=== PATIENT | female | born 1940 | race Caucasian/White ===

== ENCOUNTER → 2017-10-16 | Outpatient (CLI) | payer MEDICARE, OTHER ==
[2016-08-10 16:36] VITALS: BMI 41.7
[~2017-10-16] MED LIST: ACE325 PO; APIX5TAB PO; ATOR20TA22 PO; ATOR20TA65 PO; AZIT-1 PO; AZIT500T44 PO; BENICAR; CALC500T42 PO; CEFI400C PO; CEPH-13 PO; CHOL10005 PO; CHOL100059 PO; CYA1000 PO; CYAN250013; CYCL-277 PO; CYCL1DRO6 OP; DAR100 PO; DIA5 PO; DICL-195 PO; DICL100G39 TP; DILT240C4 PO; DOC100 PO; ELET20TA2 PO; ENO30I SC; ESCI20TA38 PO; EST625 PO; FLUT16SP19 NS; FURO20TA19 PO; HYDR-3140 PO; HYDR-4309 PO; HYDR1TAB PO; HYOS-8 PO; INUL2TAB7 PO; LEVA15HF IH; LIB PO; LOR5 PO; LOR5/325 PO; LORA10CA3 PO; LOSA-31 PO; MED25 PO; MEL7.5 PO; MELA10TA2 PO; MELO-149 PO; METH4TAB57 PO; METO100T20 PO; METO50TA19 PO; MOBIC; MULT-865 PO; OFLO10DR3 RIGHT EAR; OLME1TAB51 PO; ONDA4TAB PO; OXYGENHOME INH; PER PO; PHEN8TAB3 PO; PIRO10CA62 PO; PSYL0.5235 PO; VALS-25 PO; VALS1TAB2 PO; VERA180C7 PO; VERA360C6 PO; VERAPAMIL; ZOLP-350 PO
== END ==
LOC: LAB 09:31
DX: H11.823 Conjunctivochalasis, bilateral (principal)
CPT/HCPCS: 36415; 86703; 87340; G0472; 86803

== ENCOUNTER 2017-10-21 23:35 | Emergency (ER) | payer MEDICARE, OTHER ==
[2016-08-10 16:36] VITALS: Wt 90.7 kg
[~2017-10-21 23:35] MED LIST changes: -FURO-45 PO
[2017-10-21 23:36] VITALS: BP 159/70
[2017-10-21] MEDS ORDERED: AZITHROMYCIN 250 MG TAB PO ONE (23:45)
[2017-10-22] MEDS ORDERED: AZIT-1 PO (00:16)
--- NOTE | 2017-10-22 00:16 | ER Report ---
History and Physical Time Seen By MD: 23:38 Hx. 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 it is her right hand, patient having a lot of pain. HPI/ROS CHIEF COMPLAINT: Fall, right wrist injury, can't bite HISTORY OF PRESENT ILLNESS: 77-year-old female presents ambulatory to the ER complaining of right wrist and hand pain. Her cat who had been missing for 10 days. She was trying to catch her cat to bring it inside when she fell, losing her balance, landing on her right wrist and hand. She also spooked the cat who is seated bite her in the dorsal aspect of the hand. She states her cat is up- to-date on rabies vaccine. Patient describes 10/07 wrist pain aggravated by movement and palpation. Allergies: Coded Allergies: amoxicillin (Verified Allergy, Intermediate, HIVES, 10/22/17) clavulanic acid (Verified Allergy, Intermediate, HIVES, 10/22/17) tetracycline (Verified Allergy, Intermediate, HIVES, 10/22/17) oxycodone (Verified Allergy, Unknown, Hearing loss, 10/22/17) sulfamethoxazole (Unverified Adverse Reaction, Mild, vertigo, 10/22/17) trimethoprim (Unverified Adverse Reaction, Mild, vertigo, 10/22/17) Home Meds Active Scripts Azithromycin (ZITHROMAX) 250 Mg Tablet, 1 TAB PO QDAY for infection prevention, #4 TAB Prov:HELGA SANABRIA DO 10/22/17 Valsartan/Hydrochlorothiazide (VALSARTAN-HCTZ 80-12.5 MG TAB) 1 Each Tablet, 1 TAB PO QDAY for 90 Days, #90 TAB 4 Refills Prov:ROSELYN RODRIGUES MD 10/18/17 Diclofenac Sodium 1% Gel (VOLTAREN 1% GEL) 100 Gm Gel..gram., 1 SARAI TP PRN Y for PAIN, #1 TUBE 6 Refills Prov:ROSELYN RODRIGUES MD 08/31/17 Furosemide (LASIX) 20 Mg Tablet, 1 TAB PO DAILY Y for swelling, #90 TAB 3 Refills Prov:ROSELYN RODRIGUES MD 06/29/17 Eletriptan Hbr (RELPAX) 20 Mg Tablet, 20 MG PO PRN for 90 Days, #10 TAB 1 Refill Prov:ROSELYN RODRIGUES MD 04/20/17 Reported Medications Melatonin (MELATONIN) 10 Mg Tablet, 1 TAB PO PRN 05/17/17 Cholecalciferol (Vitamin D3) (VITAMIN D3) 1,000 Unit Capsule, 1 CAP PO DAILY, CAPSULE 05/17/17 Cyanocobalamin (Vitamin B-12) (VITAMIN B-12) 1,000 Mcg Tablet, 1 TAB PO DAILY 05/17/17 Multivitamin (DAILY MULTIPLE VITAMIN) Unknown Strength Tablet, 1 TAB PO DAILY 01/15/17 Fluticasone Prop 50 Mcg Ns (FLONASE 50 MCG NS) Unknown Strength [place].susp, 2 PUFF NS BID, BOT 01/15/17 Psyllium Husk (FIBER) Unknown Strength Capsule, PO, CAPSULE 01/15/17 Apixaban (ELIQUIS) 5 Mg Tablet, 1 TAB PO BID 08/06/16 Discontinued Reported Medications Oxygen (OXYGEN) Inha, 2 L INH QHS, L 04/18/17 Loratadine (CLARITIN) 10 Mg Capsule, 10 MG PO PRN, CAPSULE 12/27/16 Valsartan/Hydrochlorothiazide (VALSARTAN-HCTZ 80-12.5 MG TAB) 1 Each Tablet, 1 EACH PO QDAY 12/12/16 Reviewed Nurses Notes: Yes Old Medical Records Reviewed: Yes Hx Smoking: No Smoking Status: Never Smoker Hx Substance Use Disorder: No Hx Alcohol Use: Yes (3-5 TIMES WEEK) Constitutional Vital Sign - Last 24 Hours 10/21/17 23:36 Temp 98.7 Pulse 54 Resp 20 B/P (MAP) 159/70 Pulse Ox 95 O2 Delivery Room Air Physical Exam Vital signs stable, afebrile, pulse ox normal General appearance: Mild distress Respiratory: Chest is non tender, lungs are clear to auscultation. Cardiac: Regular rate and rhythm Extremities: Examination of the right upper extremity shows a right hand reveals extensive arthritis. There is some soft tissue swelling and a bite james on the dorsal aspect of the hand. Patient has decreased range of motion. All digits are neurovascularly intact. DIFFERENTIAL DIAGNOSIS: After history and physical exam differential diagnosis was considered for sprain, strain, fracture, dislocation, contusion, animal bite , puncture wound Medical Decision Making EKG/Imaging Imaging X-ray: Right hand, 3 views was obtained. I viewed the images myself on the PACS system. My interpretation of the images is: No fracture, no dislocation, advanced arthritis,. [The radiologist interpretation had no clinically significant variation from this interpretation]. ED Course/Re-evaluation ED Course Patient was admitted to an examination room. H&P was done. The pharyngeal diagnoses was considered. On medical examination. Patient has wrist and hand pain after a fall. Diagnostic x-rays were unremarkable. Patient has a cat bite to the dorsal aspect of her hand. She is allergic to penicillin with Zithromax. She's given 500 mg prophylactically here in the emergency department. Patient's tetanus status was verified is up-to-date. Patient was placed in a splint. She is advised to watch for signs of infection. She's given a prescription for Zithromax 250 mg capsules to finish out 4 days. Patient's advised to follow-up with primary care if unimproved in 3-5 days. Decision to Disposition Date: Oct 22, 2017 Decision to Disposition Time: 00:11 Depart Departure Latest Vital Signs Vital Signs Date Time Temp Pulse Resp B/P (MAP) Pulse Ox O2 Delivery O2 Flow Rate FiO2 10/21/17 23:36 98.7 54 20 159/70 95 Room Air Impression: Primary Impression: Right wrist sprain Additional Impressions: Cat bite of hand Degenerative arthritis of hand Condition: Improved Disposition: HOME OR SELF-CARE Referrals: ROSELYN RODRIGUES MD (PCP) New Scripts Azithromycin (ZITHROMAX) 250 Mg Tablet 1 TAB PO QDAY for infection prevention, #4 TAB Prov: HELGA SANABRIA DO 10/22/17 Patient Instructions: Animal Bite (ED), Wrist Sprain (ED) Additional Instructions: Follow-up with primary care if unimproved in 3-5 days Problem Qualifiers Primary Impression: Right wrist sprain Encounter type: initial encounter Qualified Codes: S63.501A - Unspecified sprain of right wrist, initial encounter Additional Impressions: Cat bite of hand Encounter type: initial encounter Laterality: right Qualified Codes: S61.451A - Open bite of right hand, initial encounter; W55.01XA - Bitten by cat , initial encounter Degenerative arthritis of hand Osteoarthritis type: primary Laterality: right Qualified Codes: M19.041 - Primary osteoarthritis, right hand HELGA SANABRIA DO Oct 22, 2017 00:16
--- NOTE | 2017-10-22 00:24 | RADIOLOGY IMAGING REPORT ---
FACILITY: [facility] - [place] PATIENT NAME: Miriam Gardiner : 1940 MR: [id number] V: [id number] EXAM DATE: ORDERING PHYSICIAN: HELGA SANABRIA TECHNOLOGIST: [place] [facility] [place] Patient: Miriam Gardiner : 1940 Visit/Account:[id number] Date of Sevice: 10/21/2017 INDICATION: fall injury cat bite EXAM DATE: 10/21/2017 11:42 PM COMPARISON: None. FINDINGS: 3 views right hand. Mineralization is diffusely low. No acute alignment abnormality or fracture. Mul tifocal severe arthrosis. Previous fusion of the interphalangeal joint of the thumb and the distal i nterphalangeal joint of the long finger. No apparent soft tissue emphysema or radiopaque foreign bod y. IMPRESSION: No acute osseous abnormality of the right hand. Nonacute findings as described. Report Dictated By: Juan Leigh MD at 10/22/2017 12:17 AM Report E-Signed By: Juan Leigh MD at 10/22/2017 12:19 AM WSN:[id number]
== END 2017-10-22 00:25 | disposition home or self-care (01) ==
LOC: ER 23:40
DX: S63.501A Unspecified sprain of right wrist, initial encounter (principal); S61.451A Open bite of right hand, initial encounter; M19.041 Primary osteoarthritis, right hand; W55.01XA Bitten by cat, initial encounter; W18.30XA Fall on same level, unspecified, initial encounter
CPT/HCPCS: 73130; 99283; L3908; Q0144

== ENCOUNTER → 2017-10-21 | Outpatient (CLI) | payer MEDICARE, OTHER ==
[2016-08-10 16:36] VITALS: BMI 41.7
[~2017-10-21] MED LIST changes: +FURO-45 PO
== END ==
LOC: AMB 23:28
PROVIDERS: ATTEND Nurse Practitioner
DX: M25.441 Effusion, right hand (principal); W01.198A Fall on same level from slipping, tripping and stumbling with subsequent striking against other object, initial encounter; Y92.019 Unspecified place in single-family (private) house as the place of occurrence of the external cause
CPT/HCPCS: A0425; A0429

== ENCOUNTER 2017-10-26 09:23 | Inpatient (IN) | payer MEDICARE, OTHER ==
[~2017-10-26] VITALS: Ht 156.2 cm; Wt 94.1 kg
[2017-10-26] MEDS ORDERED: DIPHTH/TETANUS/ACEL. PERTUSSIS IM ONLY ONE (09:50)
[2017-10-26] MEDS ORDERED: LEVOFLOXACIN/D5W 750 MG/150 ML 150 ML IVPB ONE (09:50)
[2017-10-26] MEDS ORDERED: CLINDAMYCIN(*) 600 MG/NS 50 ML 50 ML IVPB SCH (09:50)
[2017-10-26 10:37] LABS: PLATELET COUNT, AUTOMATED 266 K/uL (150-450)
--- NOTE | 2017-10-26 10:44 | ER Report ---
History and Physical Time Seen By MD: 09:50 Hx. of Stated Complaint: pt was bit by her cat 1 week ago, pt has been on azithromycin Qday since sunday. but states the redness and swelling has gotten worse. pts daughter outlined the redness, and the redness has spread so they were instructed by Dr. Gay to come in. HPI/ROS CHIEF COMPLAINT: Worsening skin infection HISTORY OF PRESENT ILLNESS: Patient is a 77-year-old female who was seen here on October 22 for a "wrist sprain" as well as a "cat bite". The electronic medical record from that visit was reviewed. Patient states that approximately on the evening of the . 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 She fell close to or on the cat who then subsequently bit her on the dorsum of the right hand. Patient states that the cat's immunizations including rabies are up to date. Patient's last tetanus shot was 7 years ago. Because of the Bite she was placed on antibiotics. She was placed on oral Zithromax secondary to multiple allergies including to penicillin, amoxicillin clavulanic acid, and Bactrim. X-rays at that visit were negative. She was seen twice by Dr. Gay who extended her antibiotic course. However the erythema has continued to spread. She reports increased pain with range of motion of the wrist as well as increased swelling. She denies any fevers or chills. Patient is right-hand dominant REVIEW OF SYSTEMS: Constitutional: No fever, no chills. Eyes: No discharge. ENT: No sore throat. Cardiovascular: No chest pain, no palpitations. Respiratory: No cough, no shortness of breath. Gastrointestinal: No abdominal pain, no vomiting. Genitourinary: No hematuria. Musculoskeletal: No back pain. Skin: Cellulitis Neurological: No headache. Allergies: Coded Allergies: amoxicillin (Verified Allergy, Intermediate, HIVES, 10/22/17) clavulanic acid (Verified Allergy, Intermediate, HIVES, 10/22/17) tetracycline (Verified Allergy, Intermediate, HIVES, 10/22/17) oxycodone (Verified Allergy, Unknown, Hearing loss, 10/22/17) sulfamethoxazole (Unverified Adverse Reaction, Mild, vertigo, 10/22/17) trimethoprim (Unverified Adverse Reaction, Mild, vertigo, 10/22/17) Home Meds Active Scripts Azithromycin (ZITHROMAX) 250 Mg Tablet, 1 TAB PO QDAY for infection prevention, #4 TAB Prov:HELGA SANABRIA DO 10/22/17 Valsartan/Hydrochlorothiazide (VALSARTAN-HCTZ 80-12.5 MG TAB) 1 Each Tablet, 1 TAB PO QDAY for 90 Days, #90 TAB 4 Refills Prov:ROSELYN RODRIGUES MD 10/18/17 Diclofenac Sodium 1% Gel (VOLTAREN 1% GEL) 100 Gm Gel..gram., 1 SARAI TP PRN Y for PAIN, #1 TUBE 6 Refills Prov:ROSELYN RODRIGUES MD 08/31/17 Furosemide (LASIX) 20 Mg Tablet, 1 TAB PO DAILY Y for swelling, #90 TAB 3 Refills Prov:ROSELYN RODRIGUES MD 06/29/17 Eletriptan Hbr (RELPAX) 20 Mg Tablet, 20 MG PO PRN for 90 Days, #10 TAB 1 Refill Prov:ROSELYN RODRIGUES MD 04/20/17 Reported Medications Melatonin (MELATONIN) 10 Mg Tablet, 1 TAB PO PRN 05/17/17 Cholecalciferol (Vitamin D3) (VITAMIN D3) 1,000 Unit Capsule, 1 CAP PO DAILY, CAPSULE 05/17/17 Cyanocobalamin (Vitamin B-12) (VITAMIN B-12) 1,000 Mcg Tablet, 1 TAB PO DAILY 05/17/17 Multivitamin (DAILY MULTIPLE VITAMIN) Unknown Strength Tablet, 1 TAB PO DAILY 01/15/17 Fluticasone Prop 50 Mcg Ns (FLONASE 50 MCG NS) Unknown Strength [place].susp, 2 PUFF NS BID, BOT 01/15/17 Psyllium Husk (FIBER) Unknown Strength Capsule, PO, CAPSULE 01/15/17 Apixaban (ELIQUIS) 5 Mg Tablet, 1 TAB PO BID 08/06/16 Discontinued Reported Medications Oxygen (OXYGEN) Inha, 2 L INH QHS, L 04/18/17 Loratadine (CLARITIN) 10 Mg Capsule, 10 MG PO PRN, CAPSULE 12/27/16 Past Medical/Surgical History Past medical history for atrial fibrillation status post ablation with permanent pacemaker. Hyperlipidemia, hypertension. Osteoarthritis and back pain , tonsillectomy, uterine cancer/polyp excised 2008 Hx Smoking: No Smoking Status: Never Smoker Hx Substance Use Disorder: No Hx Alcohol Use: Yes (3-5 TIMES WEEK) Constitutional Vital Sign - Last 24 Hours 10/26/17 09:27 Temp 97.5 Pulse 80 Resp 18 B/P (MAP) 137/64 Pulse Ox 96 O2 Delivery Room Air Intake and Output 10/26/17 10/26/17 10/27/17 15:00 23:00 07:00 Intake Total 50 ml Balance 50 ml Physical Exam General Appearance: The patient is alert, has no immediate need for airway protection and no signs of toxicity. Eyes: Pupils equal and round no pallor or injection. ENT, Mouth: Mucous membranes are moist. Respiratory: There are no retractions, lungs are clear to auscultation. Cardiovascular: Regular rate and rhythm. Gastrointestinal: Abdomen is soft and non tender, no masses, bowel sounds normal. Neurological: Awake alert Skin: Patient has erythema to the dorsum of the right hand and forearm also along the volar aspect of the forearm starting at the wrist and spreading proximally passed a pen marker line that was drawn 24 hours ago. Medical Decision Making Data Points Result Diagram: 10/26/17 1025 10/26/17 1025 Laboratory Hematology Test 10/26/17 10:25 Red Blood Count 4.49 M/uL (4.17-5.56) Mean Corpuscular Volume 91.9 fL (80.0-96.0) Mean Corpuscular Hemoglobin 31.9 pg (26.0-33.0) Mean Corpuscular Hemoglobin Concent 34.8 g/dL (32.0-36.0) Red Cell Distribution Width 14.7 % (11.5-14.5) Mean Platelet Volume 8.0 fL (7.2-11.1) Neutrophils (%) (Auto) 86.3 % (39.4-72.5) Lymphocytes (%) (Auto) 7.5 % (17.6-49.6) Monocytes (%) (Auto) 5.2 % (4.1-12.4) Eosinophils (%) (Auto) 0.7 % (0.4-6.7) Basophils (%) (Auto) 0.3 % (0.3-1.4) Nucleated RBC Relative Count (auto) 0.0 /100WBC Neutrophils # (Auto) 9.5 K/uL (2.0-7.4) Lymphocytes # (Auto) 0.8 K/uL (1.3-3.6) Monocytes # (Auto) 0.6 K/uL (0.3-1.0) Eosinophils # (Auto) 0.1 K/uL (0.0-0.5) Basophils # (Auto) 0.0 K/uL (0.0-0.1) Nucleated RBC Absolute Count (auto) 0.00 K/uL Peripheral Blood Smear Yes Y/N Sodium Level 133 mmol/L (137-145) Potassium Level 3.6 mmol/L (3.5-5.0) Chloride Level 98 mmol/L (98-107) Carbon Dioxide Level 23 mmol/L (22-31) Blood Urea Nitrogen 49 mg/dl (7-18) Creatinine 1.40 mg/dl (0.52-1.04) Glomerular Filtration Rate Calc 36.6 Random Glucose 113 mg/dl (75-110) Calcium Level 9.4 mg/dl (8.4-10.2) Chemistry Test 10/26/17 10:25 White Blood Count 11.0 k/uL (4.5-11.0) Red Blood Count 4.49 M/uL (4.17-5.56) Hemoglobin 14.3 g/dL (12.0-16.0) Hematocrit 41.2 % (34.0-47.0) Mean Corpuscular Volume 91.9 fL (80.0-96.0) Mean Corpuscular Hemoglobin 31.9 pg (26.0-33.0) Mean Corpuscular Hemoglobin Concent 34.8 g/dL (32.0-36.0) Red Cell Distribution Width 14.7 % (11.5-14.5) Platelet Count 266 K/uL (150-450) Mean Platelet Volume 8.0 fL (7.2-11.1) Neutrophils (%) (Auto) 86.3 % (39.4-72.5) Lymphocytes (%) (Auto) 7.5 % (17.6-49.6) Monocytes (%) (Auto) 5.2 % (4.1-12.4) Eosinophils (%) (Auto) 0.7 % (0.4-6.7) Basophils (%) (Auto) 0.3 % (0.3-1.4) Nucleated RBC Relative Count (auto) 0.0 /100WBC Neutrophils # (Auto) 9.5 K/uL (2.0-7.4) Lymphocytes # (Auto) 0.8 K/uL (1.3-3.6) Monocytes # (Auto) 0.6 K/uL (0.3-1.0) Eosinophils # (Auto) 0.1 K/uL (0.0-0.5) Basophils # (Auto) 0.0 K/uL (0.0-0.1) Nucleated RBC Absolute Count (auto) 0.00 K/uL Peripheral Blood Smear Yes Y/N Glomerular Filtration Rate Calc 36.6 Calcium Level 9.4 mg/dl (8.4-10.2) EKG/Imaging Imaging FACILITY: PATIENT NAME: Miriam Gardiner : 1940 MR: [id number] V: [id number] EXAM DATE: ORDERING PHYSICIAN: JULIAN LEVINE TECHNOLOGIST: Location: [facility] - [place], [place] Patient: Miriam Gardiner : 1940 Visit/Account:[id number] Date of Sevice: 10/26/2017 Examination: CT right hand with IV contrast HISTORY: Cat bite. Evaluate for soft tissue abscess. TECHNIQUE: Transaxial computed tomography images are obtained of the right hand following the administration of 85 mL of Isovue 370. Multiplanar reformatted images are created in the coronal and sagittal planes. One of the following dose optimization techniques was utilized in the performance of this exam: Automated exposure control; adjustment of the mA and/ or kV according to the patient's size; or use of an iterative reconstruction technique. Specific details can be referenced in the facility's radiology CT exam operational policy. COMPARISON: Images of the hand dated 10/21/2017 are reviewed. FINDINGS: There is abnormal skin thickening about the wrist most pronounced dorsally with underlying subcutaneous edema. There is a large joint effusion seen at the wrist. There are chronic changes at the wrist consistent with an underlying inflammatory arthropathy. There is relative uniform joint space narrowing of the joint space to the capitate and the lunate and the joint space between the hamate and triquetrum. There is widening of the scapholunate joint space. There has been prior resection of the trapezium and a portion of the trapezoid. There may be a single daphne of gas within the joint space at the site of prior trapezium resection. At this point, given the overlying cellulitic changes, septic arthropathy at the wrist must be considered in the differential. Joint aspiration could be performed with fluid analysis for further workup. In addition to the intra-articular fluid, there is felt to be fluid associated with the second extensor compartment at the level of Carmen's tubercle. More distally, there is fluid overlying the third and fourth metacarpal shafts which appears to parallel the extensor tendons and may be within the tendon sheaths. A few flecks of gas are seen within this fluid overlying the mid shaft of the third metacarpal. Findings are consistent with a soft tissue infection and a developing abscess either deep to the tendons or associated with the tendon sheaths. This area of fluid overlying the third and fourth metacarpals measures up to 2.9 x 0.8 x 3.4 cm in size. No gross bone destruction. With respect to the fingers, extensive changes of osteoarthritis are seen. Suspected erosive changes involve several the joint spaces likely due to erosive osteoarthritis. There has been prior wire arthrodesis performed at the DIP joint of the long finger. The edema within the soft tissues extends along the dorsum of the hand towards the bases of the fingers. IMPRESSION: 1. Abnormal appearance of the right wrist with a chronic underlying inflammatory arthropathy. There is a large joint effusion present with a daphne of gas suspected near the base of the thumb at the site of prior trapezium resection. This is seen in conjunction with fluid along the dorsum of the hand overlying the third and fourth metacarpals which also contains a few flecks of gas. Overall, concern is for a developing soft tissue abscess along the dorsum of the hand either within the extensor tendon sheath or deep to the extensor tendons. This likely communicates with the wrist with a concomitant septic arthropathy. Further evaluation with an orthopedic/hand specialist is recommended. Joint aspiration and/or fluid aspiration should be performed for further workup. 2. Nonspecific fluid involving the second extensor compartment. Again this may be related to an underlying inflammatory arthritis but an infectious tenosynovitis must be considered in the differential. 3. 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 Results were iscussed with JULIAN LEVINE at 10/26/2017 1:00 PM. Report Dictated By: Alber Alvarez at 10/26/2017 12:45 PM Report E-Signed By: Alber Alvarez at 10/26/2017 1:09 PM WSN:[id number] FACILITY: PATIENT NAME: Miriam Gardiner : 1940 MR: [id number] V: [id number] EXAM DATE: ORDERING PHYSICIAN: JULIAN LEVINE TECHNOLOGIST: Location: [facility] - [place], [place] Patient: Miriam Gardiner : 1940 Visit/Account:[id number] Date of Sevice: 10/26/2017 Examination: Computed tomography right forearm with contrast HISTORY: Cat bite. Evaluate for abscess. TECHNIQUE: Transaxial computed tomography images are obtained of the right forearm following the administration of 85 mL of Isovue-370. Multiplanar reformatted images were created in the coronal and sagittal planes. One of the following dose optimization techniques was utilized in the performance of this exam: Automated exposure control; adjustment of the mA and/ or kV according to the patient's size; or use of an iterative reconstruction technique. Specific details can be referenced in the facility's radiology CT exam operational policy. COMPARISON: None. FINDINGS: There is abnormal skin thickening and subcutaneous edema identified within the ulnar margin of the right forearm. This begins just distal to the elbow joint and extends distally to the wrist. There is circumferential edema and skin thickening about the wrist most pronounced dorsally. With respect to the forearm itself, no superficial or deep intramuscular fluid collection is identified. No discrete bone destruction involves the radius or the ulna. No discrete soft tissue gas. Scattered calcifications are seen within the soft tissues which may be related to vascular phleboliths. The wrist is abnormal. See today's hand examination for further detail. There is a radiocarpal joint effusion. IMPRESSION: 1. CT findings compatible with cellulitis along the ulnar margin of the right forearm extending from just distal to the elbow to the wrist. No evidence of forearm abscess within the superficial or deep soft tissues. 2. Abnormal appearance of the wrist. See today's hand CT report for further detail. Report Dictated By: Alber Alvarez at 10/26/2017 12:32 PM Report E-Signed By: Alber Alvarez at 10/26/2017 12:45 PM WSN:[id number] Course/Re-evaluation ED Course 10/26/2017 11:48:20 am patient with worsening cellulitis on oral Zithromax. The cellulitis is secondary to a cat bite. Patient's last tetanus was 7 years ago we will update that today. I believe the patient would benefit from a course of IV antibiotics including clindamycin and a fluoroquinolone. I discussed the case with the admitting hospitalist he request a CT of the forearm and hand at this time to make sure there is no fluid collection. Patient made aware and agrees to procedure. Disposition pending study. 10/26/2017 1:36:23 pm I spoke with Dr. Misael Rock was on-call for orthopedics. History physical exam lab findings were reviewed. Dr. Rock personally reviewed the CT scan himself. He was not impressed with the fluid collection to the wrist and felt that a tap of the wrist would reveal very little information as he felt it would be a "dry". He is willing to see or have one of his partners see the patient in consultation but feels the patient should be admitted for IV antibiotics. As the case with Dr. Adonis Moss. He was made aware I did contact orthopedics and also with her willingness to consult on the case if required. He agrees to IV antibiotics at this time. I will add a CRP to the patient's lab work. The patient was made aware of the admission and agrees with disposition at this time. Decision to Disposition Date: Oct 26, 2017 Decision to Disposition Time: 13:37 Depart Departure Latest Vital Signs Vital Signs Date Time Temp Pulse Resp B/P (MAP) Pulse Ox O2 Delivery O2 Flow Rate FiO2 10/26/17 09:27 97.5 80 18 137/64 96 Room Air Impression: Primary Impression: Cat bite of hand Additional Impression: Cellulitis Condition: Improved Disposition: Admitted from ER (to Dr Moss) Referrals: ROSELYN RODRIGUES MD (PCP) Problem Qualifiers Primary Impression: Cat bite of hand Encounter type: subsequent encounter Laterality: right Qualified Codes: S61.451D - Open bite of right hand, subsequent encounter; W55.01XD - Bitten by cat, subsequent encounter Additional Impression: Cellulitis Site of cellulitis: extremity Site of cellulitis of extremity: upper extremity Laterality: right Qualified Codes: L03.113 - Cellulitis of right upper limb JULIAN LEVINE MD Oct 26, 2017 10:44
[2017-10-26] MEDS ORDERED: IOPAMIDOL 76% 100 ML INFUS BTL 100 ML ONE (11:27)
[2017-10-26] MEDS ORDERED: NS(*) 0.9% 1000 ML BAG 1,000 ML IV ONE (12:15)
--- NOTE | 2017-10-26 12:49 | RADIOLOGY IMAGING REPORT ---
FACILITY: [facility] PATIENT NAME: Miriam Gardiner : 1940 MR: [id number] V: [id number] EXAM DATE: ORDERING PHYSICIAN: JULIAN LEVINE TECHNOLOGIST: Location: [facility] Patient: Miriam Gardiner : 1940 Visit/Account:[id number] Date of Sevice: 10/26/2017 Examination: Computed tomography right forearm with contrast HISTORY: Cat bite. Evaluate for abscess. TECHNIQUE: Transaxial computed tomography images are obtained of the right forearm following the admi nistration of 85 mL of Isovue-370. Multiplanar reformatted images were created in the coronal and sag ittal planes. One of the following dose optimization techniques was utilized in the performance of this exam: Autom ated exposure control; adjustment of the mA and/or kV according to the patient's size; or use of an i terative reconstruction technique. Specific details can be referenced in the facility's radiology C T exam operational policy. COMPARISON: None. FINDINGS: There is abnormal skin thickening and subcutaneous edema identified within the ulnar margin of the ri ght forearm. This begins just distal to the elbow joint and extends distally to the wrist. There is c ircumferential edema and skin thickening about the wrist most pronounced dorsally. With respect to th e forearm itself, no superficial or deep intramuscular fluid collection is identified. No discrete remington ne destruction involves the radius or the ulna. No discrete soft tissue gas. Scattered calcifications are seen within the soft tissues which may be related to vascular phleboliths. The wrist is abnormal. See today's hand examination for further detail. There is a radiocarpal joint effusion. IMPRESSION: 1. CT findings compatible with cellulitis along the ulnar margin of the right forearm extending from just distal to the elbow to the wrist. No evidence of forearm abscess within the superficial or deep soft tissues. 2. Abnormal appearance of the wrist. See today's hand CT report for further detail. Report Dictated By: Alber Alvarez at 10/26/2017 12:32 PM Report E-Signed By: Alber Alvarez at 10/26/2017 12:45 PM WSN:[id number]
--- NOTE | 2017-10-26 13:13 | RADIOLOGY IMAGING REPORT ---
FACILITY: [facility] [place] PATIENT NAME: Miriam Gardiner : 1940 MR: [id number] V: [id number] EXAM DATE: ORDERING PHYSICIAN: JULIAN LEVINE TECHNOLOGIST: Location: [facility] [place] Patient: Miriam Gardiner : 1940 Visit/Account:[id number] Date of Sevice: 10/26/2017 Examination: CT right hand with IV contrast HISTORY: Cat bite. Evaluate for soft tissue abscess. TECHNIQUE: Transaxial computed tomography images are obtained of the right hand following the adminis tration of 85 mL of Isovue 370. Multiplanar reformatted images are created in the coronal and sagitta l planes. One of the following dose optimization techniques was utilized in the performance of this exam: Autom ated exposure control; adjustment of the mA and/or kV according to the patient's size; or use of an i terative reconstruction technique. Specific details can be referenced in the facility's radiology C T exam operational policy. COMPARISON: Images of the hand dated 10/21/2017 are reviewed. FINDINGS: There is abnormal skin thickening about the wrist most pronounced dorsally with underlying subcutaneo us edema. There is a large joint effusion seen at the wrist. There are chronic changes at the wrist c onsistent with an underlying inflammatory arthropathy. There is relative uniform joint space narrowin g of the joint space to the capitate and the lunate and the joint space between the hamate and trique trum. There is widening of the scapholunate joint space. There has been prior resection of the trapez ium and a portion of the trapezoid. There may be a single daphne of gas within the joint space at the site of prior trapezium resection. At this point, given the overlying cellulitic changes, septic arth ropathy at the wrist must be considered in the differential. Joint aspiration could be performed with fluid analysis for further workup. In addition to the intra-articular fluid, there is felt to be flu id associated with the second extensor compartment at the level of Carmen's tubercle. More distally, there is fluid overlying the third and fourth metacarpal shafts which appears to parallel the extenso r tendons and may be within the tendon sheaths. A few flecks of gas are seen within this fluid overly ing the mid shaft of the third metacarpal. Findings are consistent with a soft tissue infection and a developing abscess either deep to the tendons or associated with the tendon sheaths. This area of fl uid overlying the third and fourth metacarpals measures up to 2.9 x 0.8 x 3.4 cm in size. No gross bone destruction. With respect to the fingers, extensive changes of osteoarthritis are seen. Suspected erosive changes involve several the joint spaces likely due to erosive osteoarthritis. There has been prior wire arth rodesis performed at the DIP joint of the long finger. The edema within the soft tissues extends along the dorsum of the hand towards the bases of the finge rs. IMPRESSION: 1. Abnormal appearance of the right wrist with a chronic underlying inflammatory arthropathy. There i s a large joint effusion present with a daphne of gas suspected near the base of the thumb at the site of prior trapezium resection. This is seen in conjunction with fluid along the dorsum of the hand ov erlying the third and fourth metacarpals which also contains a few flecks of gas. Overall, concern is for a developing soft tissue abscess along the dorsum of the hand either within the extensor tendon sheath or deep to the extensor tendons. This likely communicates with the wrist with a concomitant se ptic arthropathy. Further evaluation with an orthopedic/hand specialist is recommended. Joint aspirat ion and/or fluid aspiration should be performed for further workup. 2. Nonspecific fluid involving the second extensor compartment. Again this may be related to an under lying inflammatory arthritis but an infectious tenosynovitis must be considered in the differential. 3. 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 Results were iscussed with JULIAN LEVINE at 10/26/2017 1:00 PM. Report Dictated By: Alber Alvarez at 10/26/2017 12:45 PM Report E-Signed By: Alber Alvarez at 10/26/2017 1:09 PM WSN:[id number]
[2017-10-26 14:19] VITALS: BP 147/68
[2017-10-26] MEDS ORDERED: FURO-45 PO (14:29)
[2017-10-26] MEDS ORDERED: NS(*) 0.9% 1000 ML BAG 1,000 ML IV PRN ×2 (15:04→16:30)
[2017-10-26] MEDS ORDERED: APAP/HYDROCODONE 325/5 TAB PO PRN (15:05)
--- NOTE | 2017-10-26 15:39 | History & Physical ---
History of Present Illness Chief Complaint Hand pain and swelling History of Present Illness 77yo female with PMHx significant for a-fib s/p ablation with pacemaker placement, osteoarthritis. She reports a cat bite to her right hand approximately 4 days ago. It was her cat, who has had all immunizations. She developed redness, swelling, and pain fairly quickly following the bite. She was seen in the ER and started on azithromycin (due to several antibiotic allergies) and Epsom salt soaks. She has been seen in the outpatient orthopedic clinic with Dr. Wood as well. She states the pain, redness, and swelling all worsened over the following days. She denies any over fevers or chills. She did have the margins of the involvement marked in the clinic and it has spread beyond these jarrell. She was evaluated in the ER again today and recommended for admission. History Problems: (1) Fibroid, uterine Status: Resolved (2) Spinal cord cysts Status: Resolved (3) Lumbar compression fracture Status: Chronic (4) DJD (degenerative joint disease), multiple sites Status: Chronic (5) Acute systolic heart failure Status: Resolved (6) Hyperlipidemia Status: Chronic (7) Atrial fibrillation Status: Chronic (8) HTN (hypertension) Status: Chronic (9) History of total knee arthroplasty Status: Resolved (10) Hx of breast reduction, elective Status: Resolved (11) History of shoulder surgery Status: Resolved (12) Hx of tonsillectomy Status: Resolved (13) Hx of thumb surgery Status: Resolved Home Meds Active Scripts Azithromycin (ZITHROMAX) 250 Mg Tablet, 1 TAB PO QDAY for infection prevention, #4 TAB Prov:HELGA SANABRIA DO 10/22/17 Valsartan/Hydrochlorothiazide (VALSARTAN-HCTZ 80-12.5 MG TAB) 1 Each Tablet, 1 TAB PO QDAY for 90 Days, #90 TAB 4 Refills Prov:ROSELYN RODRIGUES MD 10/18/17 Diclofenac Sodium 1% Gel (VOLTAREN 1% GEL) 100 Gm Gel..gram., 1 SARAI TP PRN Y for PAIN, #1 TUBE 6 Refills Prov:ROSELYN RODRIGUES MD 08/31/17 Eletriptan Hbr (RELPAX) 20 Mg Tablet, 20 MG PO PRN for 90 Days, #10 TAB 1 Refill Prov:ROSELYN RODRIGUES MD 04/20/17 Reported Medications Furosemide (FUROSEMIDE) 20 Mg Tablet, 1 TAB PO QDAY, TAB 10/26/17 Melatonin (MELATONIN) 10 Mg Tablet, 1 TAB PO PRN 05/17/17 Cholecalciferol (Vitamin D3) (VITAMIN D3) 1,000 Unit Capsule, 1 CAP PO DAILY, CAPSULE 05/17/17 Cyanocobalamin (Vitamin B-12) (VITAMIN B-12) 1,000 Mcg Tablet, 1 TAB PO DAILY 05/17/17 Multivitamin (DAILY MULTIPLE VITAMIN) Unknown Strength Tablet, 1 TAB PO DAILY 01/15/17 Psyllium Husk (FIBER) Unknown Strength Capsule, 1 CAP PO QDAY, CAPSULE 01/15/17 Apixaban (ELIQUIS) 5 Mg Tablet, 1 TAB PO BID 08/06/16 Discontinued Reported Medications Fluticasone Prop 50 Mcg Ns (FLONASE 50 MCG NS) Unknown Strength Likely.susp, 2 PUFF NS BID, BOT 01/15/17 Oxygen (OXYGEN) Inha, 2 L INH QHS, L 04/18/17 Loratadine (CLARITIN) 10 Mg Capsule, 10 MG PO PRN, CAPSULE 12/27/16 Discontinued Scripts Furosemide (LASIX) 20 Mg Tablet, 1 TAB PO DAILY Y for swelling, #90 TAB 3 Refills Prov:ROSELYN RODRIGUES MD 06/29/17 Allergies: Coded Allergies: amoxicillin (Verified Allergy, Intermediate, HIVES, 10/22/17) clavulanic acid (Verified Allergy, Intermediate, HIVES, 10/22/17) tetracycline (Verified Allergy, Intermediate, HIVES, 10/22/17) oxycodone (Verified Allergy, Unknown, Hearing loss, 10/22/17) sulfamethoxazole (Unverified Adverse Reaction, Mild, vertigo, 10/22/17) trimethoprim (Unverified Adverse Reaction, Mild, vertigo, 10/22/17) Patient History: FH: skin cancer FATHER, , Age:90 FH: stroke FATHER, , Age:90 Hx Smoking: No Smoking Status: Never Smoker Caffeine Intake: Coffee Caffeine/Cups Per Day: 2 Hx Alcohol Use: Yes (3-5 TIMES WEEK) Hx Substance Use Disorder: No Social Drug Use: Never Review of Systems Constitutional: No Fever, No Chills Neurological: No Syncope, No Confusion, No Weakness Eyes: No Vision Change, No Loss of Vision ENT: No Hearing Loss Cardiovascular: No Chest Pain, No Palpitations Respiratory: No Shortness of Breath, No Cough Gastrointestinal: No Nausea, No Vomiting, No Hematemesis, No Hematochezia, No Melena Genitourinary: No Dysuria, No Hematuria Musculoskeletal: Pain Exam Vital Signs Vital Signs Date Time Temp Pulse Resp B/P (MAP) Pulse Ox O2 Delivery O2 Flow Rate FiO2 10/26/17 14:19 96.4 65 16 147/68 (94) 64 Room Air General Appearance: Alert, Awake Neuro: No Gross deficits Eyes: PERRLA ENT: Oropharynx Clear Neck: No Masses Cardiovascular: Regular Rate and Rhythm, No JVD Respiratory: Clear to Auscultation Chest: No Tenderness GI: Abd Soft and Non-Tender : No CVA Tenderness Extremities: Other (significant limitation of ROM through right wrist with moderate pain with testing/apparent moderate joint effusion right wrist with overlying erythema and callor/erythema extends proximally along right forearm/ two small punctures over dorsum of right hand) Integumentary: Generalized Fragile Skin Psych: Alert & Oriented X3 Medical Decision Making Data Points Result Diagram: 10/26/17 1025 10/26/17 1025 Item Value Date Time C-Reactive Protein 9.0 mg/dl H 10/26/17 1025 Assessment and Plan Problems: (1) Cellulitis Status: Acute Assessment & Plan: It appears she has rather significant cellulitis (at a minimum) and possibly septic arthritis of her wrist. She has several allergies, but we should be able to use Levaquin and Flagyl for coverage of possible organisms. Will need to have orthopedics see her as well - will discuss with Dr. Wood. (2) Cat bite of hand Status: Acute Assessment & Plan: She will be on the Levaquin and Flagyl as noted above. The cat is currently with her roofing machine operator. (3) Atrial fibrillation Status: Chronic Assessment & Plan: She has had previous ablation with pacemaker placement. She has been on chronic Eliquis therapy. We will hold for now as she may need surgical intervention in near future. (4) HTN (hypertension) Status: Chronic Assessment & Plan: Her BPs are currently low normal. Will hold the valsartan/ HCTZ and monitor. She has modest elevation of her creatinine, which could be related to the diuretic and NSAID use. Watch labs. Copies to: ROSELYN RODRIGUES MD Venous Thromboembolism Antithrombotics Is Pt On Any Antithrombotics?: Yes (will be held for possible surgical intervention) Exam Sepsis Risk: No Definite Risk Problem Qualifiers (1) Cellulitis: Site of cellulitis: extremity Site of cellulitis of extremity: upper extremity Laterality: right Qualified Codes: L03.113 - Cellulitis of right upper limb (2) Cat bite of hand: Encounter type: subsequent encounter Laterality: right Qualified Codes: S61.451D - Open bite of right hand, subsequent encounter; W55.01XD - Bitten by cat, subsequent encounter ROM MCDONOUGH MD Oct 26, 2017 15:40
[2017-10-26] MEDS ORDERED: NS(*) 0.9% 1000 ML BAG 1,000 ML ONE (16:31)
[2017-10-26] MEDS: metroNIDAZOLE* 500MG/100ML BAG 100 ML IVPB SCH (16:41)
[2017-10-26] MEDS ORDERED: metroNIDAZOLE* 500MG/100ML BAG 100 ML IVPB SCH (17:00)
[2017-10-26] MEDS: APAP/HYDROCODONE 325/5 TAB PO PRN (17:11)
[2017-10-26 19:34] VITALS: BP 98/54
[2017-10-27] MEDS: APAP/HYDROCODONE 325/5 TAB PO PRN ×4 (00:22→18:57)
[2017-10-27] MEDS: metroNIDAZOLE* 500MG/100ML BAG 100 ML IVPB SCH ×3 (00:22→17:10)
[2017-10-27 00:24] VITALS: BP 127/55
[2017-10-27 02:51] VITALS: BP 130/67
[2017-10-27 06:44] LABS: PLATELET COUNT, AUTOMATED 222 K/uL (150-450)
[2017-10-27 06:51] LABS: INR 1.48
[2017-10-27 08:47] VITALS: BP 113/64
[2017-10-27] MEDS ORDERED: MAGNESIUM HYDROXIDE* 30ML UDCP PO PRN (09:50)
[2017-10-27] MEDS ORDERED: BISACODYL 10 MG SUPP PR PRN (09:50)
[2017-10-27] MEDS ORDERED: LEVOFLOXACIN/D5W*500 MG/100 ML 100 ML IVPB SCH (10:00)
[2017-10-27] MEDS: DOCUSATE SODIUM 100 MG CAP PO SCH ×2 (10:29→20:34)
[2017-10-27] MEDS: POLYETHYLENE GLYCOL 17 GM PKT PO SCH (10:30)
[2017-10-27] MEDS: LEVOFLOXACIN/D5W*500 MG/100 ML 100 ML IVPB SCH (10:30)
[2017-10-27 11:05] VITALS: Ht 156.2 cm; Wt 94.1 kg
[2017-10-27] MEDS ORDERED: MELATONIN 3 MG TAB PO PRN (11:05)
[2017-10-27] MEDS: PSYLLIUM 28% 1 PACKET PO SCH (11:05)
--- NOTE | 2017-10-27 11:10 | Hospitalist Progress Note ---
Subjective Progress Notes Subjective Overall, feeling better. Hands/fingers less swollen. Physical Exam Vital Signs Date Time Temp Pulse Resp B/P (MAP) Pulse Ox O2 Delivery O2 Flow Rate FiO2 10/27/17 08:47 98.3 62 14 113/64 (80) 96 Room Air Intake and Output 10/28/17 07:00 Intake Total 1005 ml Balance 1005 ml IV Total 1005 ml # Voids 1 General Appearance: Alert, Awake, No Acute Distress Extremities: Other (R hand is swollen and wrist extending up arm is also swollen with erythema. New boundaries drawn in.) Result Diagram: 10/27/1751210/27/17512 Assessment and Plan Problems: (1) Cellulitis Status: Acute Assessment & Plan: She presented with swelling/erythema of wrist/hand secondary to a cat bite 4 days prior to admission. By CT, she possibly might have a septic arthritis of her wrist. She has several allergies, so she is getting IV Levaquin and Flagyl for coverage of possible organisms. Orthopedics is following. Erythema and swelling have improved some. Afebrile. BP/P stable. (2) Cat bite of hand Status: Acute Assessment & Plan: She will be on the Levaquin and Flagyl as noted above. The cat is currently with her broach setter. (3) Atrial fibrillation Status: Chronic Assessment & Plan: She has had previous ablation with pacemaker placement. She has been on chronic Eliquis therapy. We was held but will restart tonight. (4) HTN (hypertension) Status: Chronic Assessment & Plan: Will restart Lasix and Valsartan with parameters. Continue to hold HCTZ. Exam Sepsis Risk: No Definite Risk Problem Qualifiers (1) Cellulitis: Site of cellulitis: extremity Site of cellulitis of extremity: upper extremity Laterality: right Qualified Codes: L03.113 - Cellulitis of right upper limb (2) Cat bite of hand: Encounter type: subsequent encounter Laterality: right Qualified Codes: S61.451D - Open bite of right hand, subsequent encounter; W55.01XD - Bitten by cat, subsequent encounter OSCAR HERNANDEZ MD Oct 27, 2017 11:10
[2017-10-27 12:01] VITALS: BP 125/64
[2017-10-27 17:13] VITALS: BP 110/55
[2017-10-27] MEDS ORDERED: APIXABAN 2.5 MG TABLET PO SCH (21:00)
[2017-10-28] MEDS: APAP/HYDROCODONE 325/5 TAB PO PRN ×4 (00:59→21:23)
[2017-10-28] MEDS: metroNIDAZOLE* 500MG/100ML BAG 100 ML IVPB SCH ×3 (00:59→16:39)
[2017-10-28 04:46] VITALS: BP 146/77
[2017-10-28] MEDS ORDERED: NORMOSOL R SOLN(*) 1000 ML BAG 1,000 ML IV ONE (04:46)
[2017-10-28 06:02] LABS: PLATELET COUNT, AUTOMATED 271 K/uL (150-450)
[2017-10-28 07:50] VITALS: BP 131/70
[2017-10-28] MEDS: FUROSEMIDE 20 MG TAB PO SCH (08:57)
[2017-10-28] MEDS: VALSARTAN 80 MG TAB PO SCH (08:57)
[2017-10-28] MEDS: DOCUSATE SODIUM 100 MG CAP PO SCH ×2 (08:57→20:16)
[2017-10-28] MEDS: POLYETHYLENE GLYCOL 17 GM PKT PO SCH (08:58)
[2017-10-28] MEDS: PSYLLIUM 28% 1 PACKET PO SCH (08:58)
[2017-10-28] MEDS: LEVOFLOXACIN/D5W*500 MG/100 ML 100 ML IVPB SCH (10:13)
--- NOTE | 2017-10-28 10:17 | Hospitalist Progress Note ---
Subjective Progress Notes Subjective Feeling better. Physical Exam Vital Signs Date Time Temp Pulse Resp B/P (MAP) Pulse Ox O2 Delivery O2 Flow Rate FiO2 10/28/17 07:50 98.7 72 18 131/70 (90) 97 Room Air Intake and Output 10/29/17 07:00 Intake Total 240 ml Balance 240 ml Intake Oral 240 ml General Appearance: Alert, Awake, No Acute Distress Cardiovascular: Regular Rate and Rhythm Respiratory: Clear to Auscultation GI: Soft and Non-Tender Extremities: Warm, Perfused, Other (R hand with swelling of hand and distal forearm. Redness has receded from Dr. Delgado's markings. Slightly warm to the touch. ) Integumentary: Other (See above.) Psych: Appropriate Mood & Affect Result Diagram: 10/28/1752310/28/17523 Assessment and Plan Problems: (1) Cellulitis Status: Acute Assessment & Plan: She presented with swelling/erythema of wrist/hand secondary to a cat bite 4 days prior to admission. CT showed a possible septic arthritis of her wrist. CRP elevated. She has several allergies, so she is getting IV Levaquin and Flagyl for coverage of possible organisms. Orthopedics is following and feels she is improving so have deferred any surgery. Erythema and swelling have improved today. She remains afebrile. BP/P stable. (2) Cat bite of hand Status: Acute Assessment & Plan: She will be on the Levaquin and Flagyl as noted above. The cat is currently with her sales inspector. (3) Atrial fibrillation Status: Chronic Assessment & Plan: She has had previous ablation with pacemaker placement. She has been on chronic Eliquis therapy and this was restarted. (4) HTN (hypertension) Status: Chronic Assessment & Plan: Will restart Lasix and Valsartan with parameters. Continue to hold HCTZ. Time Spent on Plan of Care: < 30 min Exam Sepsis Risk: No Definite Risk Problem Qualifiers (1) Cellulitis: Site of cellulitis: extremity Site of cellulitis of extremity: upper extremity Laterality: right Qualified Codes: L03.113 - Cellulitis of right upper limb (2) Cat bite of hand: Encounter type: subsequent encounter Laterality: right Qualified Codes: S61.451D - Open bite of right hand, subsequent encounter; W55.01XD - Bitten by cat, subsequent encounter DUKE MCDONOUGH MD Oct 28, 2017 10:17
[2017-10-28 11:48] VITALS: BP 127/62
[2017-10-28 16:38] VITALS: BP_SYST 127; BP_SYST 134; BP_DIAS 62; BP_DIAS 75
[2017-10-28 18:46] VITALS: BP 123/67
[2017-10-28] MEDS: APIXABAN 2.5 MG TABLET PO SCH (20:16)
[2017-10-29] MEDS: metroNIDAZOLE* 500MG/100ML BAG 100 ML IVPB SCH ×3 (01:15→16:44)
[2017-10-29] MEDS: APAP/HYDROCODONE 325/5 TAB PO PRN ×3 (03:23→18:20)
[2017-10-29 06:22] LABS: PLATELET COUNT, AUTOMATED 304 K/uL (150-450)
[2017-10-29 08:49] VITALS: BP 141/73
[2017-10-29] MEDS: FUROSEMIDE 20 MG TAB PO SCH (09:25)
[2017-10-29] MEDS: APIXABAN 2.5 MG TABLET PO SCH (09:25)
[2017-10-29] MEDS: VALSARTAN 80 MG TAB PO SCH (09:25)
[2017-10-29] MEDS: DOCUSATE SODIUM 100 MG CAP PO SCH ×2 (09:25→20:43)
[2017-10-29] MEDS: PSYLLIUM 28% 1 PACKET PO SCH (09:35)
[2017-10-29] MEDS: POLYETHYLENE GLYCOL 17 GM PKT PO SCH (09:35)
--- NOTE | 2017-10-29 09:58 | Hospitalist Progress Note ---
Subjective Progress Notes Subjective This patient was admitted for cellulitis of the wrist and hand after a cat bite. She had no acute events overnight. Patient Complains of: Cardiovascular: No: Chest Pain Respiratory: No: Shortness of Breath Physical Exam Vital Signs Date Time Temp Pulse Resp B/P (MAP) Pulse Ox O2 Delivery O2 Flow Rate FiO2 10/29/17 08:49 98.5 91 141/73 (95) 95 Room Air 10/28/17 16:38 18 Intake and Output 10/30/17 07:00 Intake Total 180 ml Balance 180 ml Intake Oral 180 ml Integumentary: Other (Right wrist with reduced erythema, but increased swelling into the hand.) Result Diagram: 10/29/17 0549 10/29/17 0549 Item Value Date Time Blood Culture - Preliminary Resulted 10/26/17 1028 Blood Peripheral Draw NO GROWTH AFTER 2 DAYS, REINCUBATED Blood Culture - Preliminary Resulted 10/26/17 1025 Blood Peripheral Draw NO GROWTH AFTER 2 DAYS, REINCUBATED Assessment and Plan Problems: (1) Cellulitis Status: Acute Assessment & Plan: She presented with swelling/erythema of wrist/hand secondary to a cat bite 4 days prior to admission. A CT scan showed a possible septic arthritis of her wrist. She was evaluated by Dr. Wood. There are no plans for operative intervention at this time. She is on treatment with levofloxacin and metronidazole. Her CRP remains elevated today. We may consider repeating her CT scan if she doesn't improve. (2) Cat bite of hand Status: Acute Assessment & Plan: As above. (3) Atrial fibrillation Status: Chronic Assessment & Plan: She has had previous ablation with pacemaker placement. She is on chronic treatment with apixaban, which has been placed on hold. (4) HTN (hypertension) Status: Chronic Assessment & Plan: She is on chronic treatment with valsartan, Lasix, and hydrochlorothiazide. The hydrochlorothiazide remains on hold. Exam Sepsis Risk: No Definite Risk Problem Qualifiers (1) Cellulitis: Site of cellulitis: extremity Site of cellulitis of extremity: upper extremity Laterality: right Qualified Codes: L03.113 - Cellulitis of right upper limb (2) Cat bite of hand: Encounter type: subsequent encounter Laterality: right Qualified Codes: S61.451D - Open bite of right hand, subsequent encounter; W55.01XD - Bitten by cat, subsequent encounter OLVIN,ARIADNA DO Oct 29, 2017 09:58
[2017-10-29] MEDS: LEVOFLOXACIN/D5W*500 MG/100 ML 100 ML IVPB SCH (11:00)
--- NOTE | 2017-10-29 11:51 | Antimicrobial Stewardship ---
Antimicrobial Time Out Antimicrobial Stewardship MD Service: Hospitalist Indications: Cellulitis (Potential Abscess, Cat Bite) Antimicrobial Used 10/26/17: Levofloxacin 500mg IV Q24h + Metronidazole 500mg IV Q8h Start Date: Oct 26, 2017 Culture Results: Yes (10/26/17: Blood Cx x 2 = NGTD, cat bites- most common pathogen pasturella multocida) Eligible for PO Conversion Eligable for PO Conversion: No (10/29/17: Concern for extending infection, possible abscess - CRP 19, pain) Reviewed with Provider Reviewed w/ Provider on Rounds: Yes Date Reviewed w/ Provider: Oct 29, 2017 Comments Comments 77 yo F with a history of a cat bite on 10/22/17 seen in the outpatient orthopedic clinic by Dr. Wood and in the ED as well. Presented on 10/26/17 with worsening symptoms despite azithromycin. Tmax- Afebrile BP 130-140s/60-70s HR 60-70s, max today 90s CRP: 9 ->23.3 -> 19.9 WBC: 11->7.8 -> 10.8 Neut: 9.5 ->6.8-> 5.2-> 7.8 Scr: 0.7 INR: 1.48 (on apixiban) ALL: amoxicillin, clavulanic acid, oxycodone, sulfamethoxazole, trimethoprim, tetracycline 10/26/17: Blood Cx x 2 = NGTD 10/26/17: CT of hand and forearm (R): Showed concern for developing abscess along the dorsum of the hand, likely aseptic arthritis Plan: Continue treatment with levofloxacin 500mg IV Q24h + metronidazole 500mg IV q8h, today is day 4 of IV antibiotics, continue with intravenous treatment until signs of clinical improvement. Consider re-scanning to assess for abscess formation within the next 48 hours. Total duration of treatment, likely 10 - 14 days. When appropriate to transition to oral antibiotics, consider oral levofloxacin 500mg po daily and metronidazole 500mg po TID to complete full treatment. Will continue to monitor and adjust antibiotics as appropriate. Lynda Baca, PharmD, BCOP LYNDA BACA Oct 29, 2017 11:51
[2017-10-29 14:56] VITALS: BP 147/85
[2017-10-29 19:36] VITALS: BP 125/74
[2017-10-30] MEDS: APAP/HYDROCODONE 325/5 TAB PO PRN ×4 (00:21→18:26)
[2017-10-30] MEDS: metroNIDAZOLE* 500MG/100ML BAG 100 ML IVPB SCH ×3 (00:21→16:51)
[2017-10-30 03:24] VITALS: BP 161/84
[2017-10-30] MEDS: FUROSEMIDE 20 MG TAB PO SCH (09:00)
[2017-10-30] MEDS: VALSARTAN 80 MG TAB PO SCH (09:00)
[2017-10-30 09:25] VITALS: BP 125/74
[2017-10-30] MEDS: DOCUSATE SODIUM 100 MG CAP PO SCH ×2 (09:26→20:35)
[2017-10-30] MEDS: PSYLLIUM 28% 1 PACKET PO SCH (09:27)
[2017-10-30] MEDS: POLYETHYLENE GLYCOL 17 GM PKT PO SCH (09:27)
[2017-10-30] MEDS: APIXABAN 2.5 MG TABLET PO SCH ×2 (09:30→20:33)
--- NOTE | 2017-10-30 10:11 | Hospitalist Progress Note ---
Subjective Progress Notes Subjective She reports decrease in swelling and redness, but still a very painful wrist. Physical Exam Vital Signs Date Time Temp Pulse Resp B/P (MAP) Pulse Ox O2 Delivery O2 Flow Rate FiO2 10/30/17 09:25 98.2 65 20 125/74 (91) 94 Room Air Intake and Output 10/31/17 07:00 Intake Total 0 ml Balance 0 ml Intake Oral 0 ml General Appearance: Alert, Awake, No Acute Distress Musculoskeletal: Other (Hand/forearm is less swollen and erythematous. Still with swelling over the wrist and fingers. Erythema over dorsum of hand. Very tender with movement of wrist or palpation) Result Diagram: 10/29/17 0549 10/29/17 0549 Assessment and Plan Problems: (1) Cellulitis Status: Acute Assessment & Plan: She presented with swelling/erythema of wrist/hand secondary to a cat bite 4 days prior to admission. A CT scan showed a possible septic arthritis of her wrist. She was evaluated by Dr. Wood. There are no plans for operative intervention at this time. She is on treatment with levofloxacin and metronidazole. Her CRP remains elevated today. We may consider repeating her CT scan if she doesn't improve. (2) Cat bite of hand Status: Acute Assessment & Plan: As above. (3) Atrial fibrillation Status: Chronic Assessment & Plan: She has had previous ablation with pacemaker placement. She is on chronic treatment with apixaban, which has been placed on hold. (4) HTN (hypertension) Status: Chronic Assessment & Plan: She is on chronic treatment with valsartan, Lasix, and hydrochlorothiazide. The hydrochlorothiazide remains on hold. Exam Sepsis Risk: No Definite Risk Problem Qualifiers (1) Cellulitis: Site of cellulitis: extremity Site of cellulitis of extremity: upper extremity Laterality: right Qualified Codes: L03.113 - Cellulitis of right upper limb (2) Cat bite of hand: Encounter type: subsequent encounter Laterality: right Qualified Codes: S61.451D - Open bite of right hand, subsequent encounter; W55.01XD - Bitten by cat, subsequent encounter OSCAR HERNANDEZ MD Oct 30, 2017 10:11
[2017-10-30] MEDS: LEVOFLOXACIN/D5W*500 MG/100 ML 100 ML IVPB SCH (10:45)
[2017-10-30 12:04] VITALS: BP 139/94
[2017-10-30 15:59] VITALS: BP 164/82
[2017-10-30 18:48] VITALS: BP 136/70
[2017-10-30 22:22] VITALS: BP 156/94
[2017-10-31] MEDS: metroNIDAZOLE* 500MG/100ML BAG 100 ML IVPB SCH ×3 (00:34→16:18)
[2017-10-31] MEDS: APAP/HYDROCODONE 325/5 TAB PO PRN ×4 (00:34→18:40)
[2017-10-31 02:32] VITALS: BP 162/95
[2017-10-31 05:39] LABS: PLATELET COUNT, AUTOMATED 369 K/uL (150-450)
[2017-10-31] MEDS ORDERED: IOPAMIDOL 76% 75 ML INFUS BTL 75 ML ONE (08:26)
[2017-10-31] MEDS: POLYETHYLENE GLYCOL 17 GM PKT PO SCH (09:00)
[2017-10-31 09:04] VITALS: BP 167/86
[2017-10-31] MEDS: PSYLLIUM 28% 1 PACKET PO SCH (09:09)
[2017-10-31] MEDS: APIXABAN 2.5 MG TABLET PO SCH (09:10)
[2017-10-31] MEDS: DOCUSATE SODIUM 100 MG CAP PO SCH ×2 (09:10→20:53)
[2017-10-31] MEDS: FUROSEMIDE 20 MG TAB PO SCH (09:10)
[2017-10-31] MEDS: VALSARTAN 80 MG TAB PO SCH (09:10)
[2017-10-31] MEDS: LEVOFLOXACIN/D5W*500 MG/100 ML 100 ML IVPB SCH (10:40)
[2017-10-31 10:54] VITALS: BP 157/81
--- NOTE | 2017-10-31 11:30 | Hospitalist Progress Note ---
Subjective Progress Notes Subjective She is having continued pain and limitation of ROM in her wrist. No fever. Physical Exam Vital Signs Date Time Temp Pulse Resp B/P (MAP) Pulse Ox O2 Delivery O2 Flow Rate FiO2 10/31/17 10:54 98.6 60 20 157/81 (106) 96 Room Air Intake and Output 11/01/17 07:00 Intake Total 1144 ml Balance 1144 ml Intake Oral 1040 ml IV Total 104 ml # Bowel Movements 1 General Appearance: Alert, Awake Extremities: Other (she has significant edema and erythema over wrist with tenderness to palpation and significant limitation of ROM/erythema over forearm has decreased significantly) Result Diagram: 10/31/17 0513 10/31/17512 Assessment and Plan Problems: (1) Cellulitis Status: Acute Assessment & Plan: She presented with swelling/erythema of wrist/hand secondary to a cat bite 4 days prior to admission. A CT scan showed cellulitis and concern for a possible septic arthritis of her wrist. She was evaluated by Dr. Wood. She is on treatment with IV levofloxacin and metronidazole. Her CRP is improving. She is afebrile. We will repeat her CT scan, however, as she has persistent changes involving her wrist. (2) Cat bite of hand Status: Acute Assessment & Plan: As above. (3) Atrial fibrillation Status: Chronic Assessment & Plan: She has had previous ablation with pacemaker placement. She is on chronic treatment with apixaban. (4) HTN (hypertension) Status: Chronic Assessment & Plan: She is on chronic treatment with valsartan, Lasix, and hydrochlorothiazide. The hydrochlorothiazide remains on hold. Exam Sepsis Risk: No Definite Risk Problem Qualifiers (1) Cellulitis: Site of cellulitis: extremity Site of cellulitis of extremity: upper extremity Laterality: right Qualified Codes: L03.113 - Cellulitis of right upper limb (2) Cat bite of hand: Encounter type: subsequent encounter Laterality: right Qualified Codes: S61.451D - Open bite of right hand, subsequent encounter; W55.01XD - Bitten by cat, subsequent encounter ROM MCDONOUGH MD Oct 31, 2017 11:30
[2017-10-31 15:09] VITALS: BP 139/63
--- NOTE | 2017-10-31 15:25 | RADIOLOGY IMAGING REPORT ---
FACILITY: [facility] [place] PATIENT NAME: Miriam Gardiner : 1940 MR: [id number] V: [id number] EXAM DATE: ORDERING PHYSICIAN: OSCAR HERNANDEZ TECHNOLOGIST: Location: [facility] Patient: Miriam Gardiner : 1940 Visit/Account:[id number] Date of Sevice: 10/31/2017 INDICATION: cat bite and concern for abscess. DATE: 10/31/2017 2:57 PM. TECHNIQUE: WRIST RIGHT W CONTRAST. Contrast-enhanced axial CT imaging was performed through the right wrist with sagittal and coronal reformats. 75 cc Isovue-370 administered. One of the following dose optimization techniques was utilized in the performance of this exam: Automated exposure control; adj ustment of the mA and/or kV according to the patient's size; or use of an iterative reconstruction t echnique. Specific details can be referenced in the facility's radiology CT exam operational policy. COMPARISON: Forearm and hand radiographs of October 26, 2017 FINDINGS: There is fluid along the extensor tendon sheaths involving the second through fifth digits at the lev el of the metacarpals and within the extensor tendon sheath of the forearm at the level of the carpus . There is an effusion at the distal radioulnar joint with thickening of the peripheral synovium. The re are gas bubbles within the joint space at the base of the from between the first metacarpal and th e scaphoid. The trapezium appears to be absent and may have been resected. There are multiple lobulat ions with probable peripheral enhancement on the lateral side of the hand involving the musculature b etween the first and second webspace. This is demonstrated on series 3 image 19. No fracture or dislocation. Mild widening of the scapholunate interval is likely chronic but suggests an old scapholunate ligamentous injury. There are multifocal degenerative findings. IMPRESSION: 1. Tenosynovitis involving the first through fifth extensor tendons as above and effusion at the dist al radioulnar joint with thickened synovium. Given the history, findings suggest infectious tenosynov itis with extension to the carpus involving at least the distal radioulnar joint and the first metaca rpal-scaphoid interval. 2. There is also gas between the scaphoid and the base of the first metacarpal (the trapezium appears to have been at some point resected). A gas-forming organism may be present. 3. Probable small abscesses within the musculature between the first and second digits. Report Dictated By: Tiffani Brown MD at 10/31/2017 2:57 PM Report E-Signed By: Tiffani Brown MD at 10/31/2017 3:22 PM [id number]
[2017-10-31 18:50] VITALS: BP 130/60
--- NOTE | 2017-10-31 20:47 | RADIOLOGY IMAGING REPORT ---
FACILITY: [facility] - [place] PATIENT NAME: Miriam Gardiner : 1940 MR: [id number] V: [id number] EXAM DATE: ORDERING PHYSICIAN: ROM MCDONOUGH TECHNOLOGIST: Location: Patient: Miriam Gardiner : 1940 Visit/Account:[id number] Date of Sevice: 10/31/2017 PORTABLE CHEST: Indication: Preoperative evaluation. Technique: A single frontal film was obtained. Comparison: 08/09/2016 Skeletal and soft tissue structures: There are chronic degenerative changes in the shoulders. No acut e skeletal deformity is identified. Heart and mediastinum: Within normal limits. Lung novoa: Well-expanded and clear. No focal opacities. Pleural spaces: Unremarkable. Impression: No acute process or significant change. Report Dictated By: Carlitos Monet MD at 10/31/2017 8:41 PM Report E-Signed By: Carlitos Monet MD at 10/31/2017 8:43 PM WSN:[id number]
[2017-10-31 23:02] VITALS: BP 158/79
[2017-11-01] VITALS (9 sets, daily range): BP systolic 151–180; BP diastolic 70–91
[2017-11-01] MEDS: APAP/HYDROCODONE 325/5 TAB PO PRN ×4 (00:43→22:20)
[2017-11-01] MEDS: metroNIDAZOLE* 500MG/100ML BAG 100 ML IVPB SCH ×3 (00:43→16:47)
[2017-11-01 05:50] LABS: PLATELET COUNT, AUTOMATED 399 K/uL (150-450)
[2017-11-01] MEDS ORDERED: FAMOTIDINE(*) 20MG/50ML PREMIX 50 ML IVPB ONE (07:00)
[2017-11-01] MEDS ORDERED: NORMOSOL R SOLN(*) 1000 ML BAG 1,000 ML IV ONE (08:25)
[2017-11-01] MEDS: VALSARTAN 80 MG TAB PO SCH (09:00)
[2017-11-01] MEDS: DOCUSATE SODIUM 100 MG CAP PO SCH ×2 (09:00→20:28)
[2017-11-01] MEDS: POLYETHYLENE GLYCOL 17 GM PKT PO SCH (09:00)
[2017-11-01] MEDS: PSYLLIUM 28% 1 PACKET PO SCH (09:00)
[2017-11-01] MEDS: FUROSEMIDE 20 MG TAB PO SCH (09:00)
--- NOTE | 2017-11-01 09:48 | Hospitalist Progress Note ---
Subjective Progress Notes Subjective She has been afebrile. The swelling in the hand and wrist are slowly improving , per the patient. However, she still has a lot of pain with movement of the wrist. Physical Exam Vital Signs Date Time Temp Pulse Resp B/P (MAP) Pulse Ox O2 Delivery O2 Flow Rate FiO2 11/01/17 07:33 98.9 63 16 154/70 (98) 95 Room Air Intake and Output 11/02/17 07:00 Intake Total 55 ml Balance 55 ml IV Total 55 ml General Appearance: Alert, Awake, Other (pale. breathing comfortably) Extremities: Other (R forearm/wrist/hand - swelling and erythema continue to improve. Ulnar aspect of wrist is painful to touch and wrist is very limited movement secondary to pain) Result Diagram: 11/01/1751911/01/17519 Assessment and Plan Problems: (1) Cellulitis Status: Acute Assessment & Plan: She presented with swelling/erythema of wrist/hand secondary to a cat bite 4 days prior to admission. A CT scan showed cellulitis and concern for a possible septic arthritis of her wrist. She was evaluated by Ortho. She is on treatment with IV levofloxacin and metronidazole. Her CRP is improving. She is afebrile. However, she still has a very tender wrist and has swelling/induration on the ulnar aspect. Repeat CT of the wrist on 10/31, was concerning for worsening of a septic wrist. She is going to the OR today. (2) Cat bite of hand Status: Acute Assessment & Plan: As above. (3) Atrial fibrillation Status: Chronic Assessment & Plan: She has had previous ablation with pacemaker placement. The pacemaker is the type without leads and is just in the ventricle. The family is getting the paperwork regarding the pacemaker to maker sure special precautions are not needed for the OR. Staff in the OR has been notificed and they will notify Dr. Bhardwaj (anesthesia). She is on chronic treatment with apixaban, but it is currently on hold. (4) HTN (hypertension) Status: Chronic Assessment & Plan: She is on chronic treatment with valsartan, Lasix, and hydrochlorothiazide. The hydrochlorothiazide remains on hold. Exam Sepsis Risk: No Definite Risk Problem Qualifiers (1) Cellulitis: Site of cellulitis: extremity Site of cellulitis of extremity: upper extremity Laterality: right Qualified Codes: L03.113 - Cellulitis of right upper limb (2) Cat bite of hand: Encounter type: subsequent encounter Laterality: right Qualified Codes: S61.451D - Open bite of right hand, subsequent encounter; W55.01XD - Bitten by cat, subsequent encounter OSCAR HERNANDEZ MD Nov 01, 2017 09:48
[2017-11-01] MEDS: LEVOFLOXACIN/D5W*500 MG/100 ML 100 ML IVPB SCH (10:28)
[2017-11-01] MEDS ORDERED: LIDOCAINE 2% IV 100 MG/5ML SYR ONE (11:13)
[2017-11-01] MEDS ORDERED: fentaNYL CITR 250 MCG/5 ML AMP ONE (11:13)
[2017-11-01] MEDS ORDERED: PROPOFOL EMUL(*) 10MG/ML 20 ML 20 ML ONE (11:14)
[2017-11-01] MEDS ORDERED: ROPIVACAINE 0.2% 20 ML VIAL ONE (12:06)
[2017-11-01] MEDS ORDERED: BACITRACIN/POLYMY B OINT 15 GM TP ONE (12:06)
[2017-11-01] MEDS ORDERED: DEXAMETHASONE SOD 4 MG/ML VIAL ONE (13:05)
[2017-11-01] MEDS ORDERED: ONDANSETRON 4 MG/2 ML VIAL ONE (13:05)
[2017-11-01] MEDS ORDERED: fentaNYL CITR 100 MCG/2 ML AMP ONE ×3 (13:30→14:11)
[2017-11-01] MEDS ORDERED: KETOROLAC 30 MG/ML VIAL ONE (13:34)
[2017-11-01] MEDS ORDERED: HYDROmorphone HCL 2 MG/ML SDV ONE (14:31)
--- NOTE | 2017-11-01 16:51 | OPERATIVE REPORT 1 ---
EVENT DATE: November 01, 2017 SURGEON: Misael Rock MD ANESTHESIOLOGIST: Manoj Bhardwaj MD ANESTHESIA: General endotracheal anesthesia. SENIOR STOCK PLAN ADMINISTRATOR: ROSA ISELA Mc PREOPERATIVE DIAGNOSIS Right hand abscess. POSTOPERATIVE DIAGNOSIS Right hand abscess. PROCEDURE PERFORMED Right hand irrigation and debridement of abscess. INTRAVENOUS FLUIDS 800 mL ESTIMATED BLOOD LOSS 25 mL IMPLANTS USED None. SPECIMENS Superficial and deep wound cultures. COMPLICATIONS None. DRAINS None. DISPOSITION PACU. INDICATIONS FOR SURGERY Ms. Gardiner is a 77-year-old female who several days ago was bitten on the dorsum of her hand by her cat. She developed a cellulitis, and an initial CT scan was negative for any evidence of fluid collection. Over time, a majority of her cellulitis improved while on antibiotics as an inpatient, but she had worsening erythema at the base of the thumb metacarpal, and a new CT scan was obtained that showed abscess and what appeared to be gas volar to the space between the proximal aspect of the first and second metacarpals. Secondary to this, she was counseled regarding surgery and elected to undergo an irrigation and debridement of that abscess. DESCRIPTION OF PROCEDURE On day of surgery, patient was met in the preoperative hold area, and her operative site was initialed. She was brought in good condition to the operating room. After succumbing to anesthesia, her right upper extremity was prepped and draped in standard sterile orthopedic fashion on a hand table. A final timeout was undertaken to confirm correct patient, correct side, and correct surgery. We then utilized the same incision from her previous LRTI surgery on the volar and radial aspects of the wrist. I identified the abductor pollicis tendon and then retracted it dorsally. The thenar musculature was retracted volarly, and sharp and dull dissection was carried out down around anterior to the LRTI and into the volar space where the abscess was located on CT. We obtained superficial and deep cultures and then copiously irrigated that space with copious sterile saline solution. Meticulous hemostasis was then obtained, and the wound was closed using interrupted nylon sutures. A volar resting splint was placed, and the patient was returned to the recovery room. POSTOPERATIVE CARE PLAN Ms. Gardiner will continue on her inpatient medications including her IV antibiotics. We will follow her CRP down and continue to monitor for any further problems. HAKEEM
[2017-11-02] MEDS: metroNIDAZOLE* 500MG/100ML BAG 100 ML IVPB SCH ×2 (01:36→08:38)
[2017-11-02 04:42] VITALS: BP 144/78
[2017-11-02] MEDS: APAP/HYDROCODONE 325/5 TAB PO PRN (04:49)
[2017-11-02 07:21] VITALS: BP 144/66
[2017-11-02] MEDS ORDERED: LEVO500T83 PO (08:32)
[2017-11-02] MEDS ORDERED: METR-160 PO (08:32)
--- NOTE | 2017-11-02 08:37 | Hospitalist Depart ---
Discharge Summary Reason for Hosp/Final Diag: (1) Cellulitis Status: Acute Hospital Course & Plan: She presented with swelling/erythema of wrist/hand secondary to a cat bite 4 days prior to admission. A CT scan showed cellulitis and concern for a possible septic arthritis of her wrist. She was placed on empiric treatment with levofloxacin and metronidazole. Her CRP failed to improve and a repeat CT scan showed findings consistent with abscess and tenosynovitis. She had a surgical debridement on 11/01 and improved significantly. She will discharge on oral levofloxacin and metronidazole. (2) Cat bite of hand Status: Acute Hospital Course & Plan: As above. (3) Atrial fibrillation Status: Chronic Hospital Course & Plan: She has had previous ablation with pacemaker placement. She is on chronic treatment with apixaban. (4) HTN (hypertension) Status: Chronic Hospital Course & Plan: She is on chronic treatment with valsartan, Lasix, and hydrochlorothiazide. Departure Latest Vital Signs Vital Signs 11/01/17 11/02/17 16:03 07:21 Temp 97.7 Pulse 62 Resp 20 B/P (MAP) 144/66 (92) Pulse Ox 97 O2 Delivery Room Air O2 Flow Rate 2.0 Weight (Pounds): 207 Weight (Ounces): 7.0 Result Diagram: 11/01/17 0511/01/17 05 Condition: Improved Discharge: Home, Self Care Discharge Instructions Home Meds Active Scripts Metronidazole (METRONIDAZOLE) 500 Mg Tablet, 500 MG PO TID, #15 TAB Prov:ARIADNA BAH DO 11/02/17 Levofloxacin 500 Mg Tab (LEVOFLOXACIN 500 MG TAB) 500 Mg Tablet, 500 MG PO QDAY , #5 TAB Prov:ARIADNA BAH DO 11/02/17 Valsartan/Hydrochlorothiazide (VALSARTAN-HCTZ 80-12.5 MG TAB) 1 Each Tablet, 1 TAB PO QDAY for 90 Days, #90 TAB 4 Refills Prov:ROSELYN RODRIGUES MD 10/18/17 Diclofenac Sodium 1% Gel (VOLTAREN 1% GEL) 100 Gm Gel..gram., 1 SARAI TP PRN Y for PAIN, #1 TUBE 6 Refills Prov:ROSELYN RODRIGUES MD 08/31/17 Eletriptan Hbr (RELPAX) 20 Mg Tablet, 20 MG PO PRN for 90 Days, #10 TAB 1 Refill Prov:ROSELYN RODRIGUES MD 04/20/17 Reported Medications Furosemide (FUROSEMIDE) 20 Mg Tablet, 1 TAB PO QDAY, TAB 10/26/17 Melatonin (MELATONIN) 10 Mg Tablet, 1 TAB PO PRN 05/17/17 Cholecalciferol (Vitamin D3) (VITAMIN D3) 1,000 Unit Capsule, 1 CAP PO DAILY, CAPSULE 05/17/17 Cyanocobalamin (Vitamin B-12) (VITAMIN B-12) 1,000 Mcg Tablet, 1 TAB PO DAILY 05/17/17 Multivitamin (DAILY MULTIPLE VITAMIN) Unknown Strength Tablet, 1 TAB PO DAILY 01/15/17 Psyllium Husk (FIBER) Unknown Strength Capsule, 1 CAP PO QDAY, CAPSULE 01/15/17 Apixaban (ELIQUIS) 5 Mg Tablet, 1 TAB PO BID 08/06/16 Discontinued Reported Medications Fluticasone Prop 50 Mcg Ns (FLONASE 50 MCG NS) Unknown Strength [place].susp, 2 PUFF NS BID, BOT 01/15/17 Discontinued Scripts Azithromycin (ZITHROMAX) 250 Mg Tablet, 1 TAB PO QDAY for infection prevention, #4 TAB Prov:HELGA SANABRIA DO 10/22/17 Furosemide (LASIX) 20 Mg Tablet, 1 TAB PO DAILY Y for swelling, #90 TAB 3 Refills Prov:ROSELYN RODRIGUES MD 06/29/17 Diet: Regular Activity: As Tolerated Copies to: KELIN BROTHERS MD Venous Thromboembolism Antithrombotics Is Pt On Any Antithrombotics?: Yes (will be held for possible surgical intervention) Problem Qualifiers (1) Cellulitis: Site of cellulitis: extremity Site of cellulitis of extremity: upper extremity Laterality: right Qualified Codes: L03.113 - Cellulitis of right upper limb (2) Cat bite of hand: Encounter type: subsequent encounter Laterality: right Qualified Codes: S61.451D - Open bite of right hand, subsequent encounter; W55.01XD - Bitten by cat, subsequent encounter OLVINARIADNA BUENROSTRO DO Nov 02, 2017 08:37
[2017-11-02] MEDS: POLYETHYLENE GLYCOL 17 GM PKT PO SCH (08:38)
[2017-11-02] MEDS: FUROSEMIDE 20 MG TAB PO SCH ×2 (08:38→08:45)
[2017-11-02] MEDS: PSYLLIUM 28% 1 PACKET PO SCH (08:38)
[2017-11-02] MEDS: DOCUSATE SODIUM 100 MG CAP PO SCH (08:38)
[2017-11-02 08:42] VITALS: BP 126/64
[2017-11-02] MEDS: VALSARTAN 80 MG TAB PO SCH ×2 (08:42→08:45)
[2017-11-02] MEDS: LEVOFLOXACIN/D5W*500 MG/100 ML 100 ML IVPB SCH (10:07)
[2017-11-02] MEDS ORDERED: LOR5/325 PO (11:29)
== END 2017-11-02 11:50 | disposition home or self-care (01) | DRG 603 ==
LOC: ER 09:32 → MED 13:56
PROVIDERS: ADMIT Internal Medicine; ATTEND Internal Medicine
PROC: 3E1038X Irrigation of Skin and Mucous Membranes using Irrigating Substance, Percutaneous Approach, Diagnostic (ICD-10-PCS; principal; 2017-11-01 13:05)
DX: L03.113 Cellulitis of right upper limb (principal); I50.22 Chronic systolic (congestive) heart failure; L02.511 Cutaneous abscess of right hand; S61.451A Open bite of right hand, initial encounter; I11.0 Hypertensive heart disease with heart failure; I48.2 Chronic atrial fibrillation; E78.5 Hyperlipidemia, unspecified; M65.9 Synovitis and tenosynovitis, unspecified; W55.01XA Bitten by cat, initial encounter; Y92.009 Unspecified place in unspecified non-institutional (private) residence as the place of occurrence of the external cause; Y99.8 Other external cause status; Z79.01 Long term (current) use of anticoagulants; Z88.0 Allergy status to penicillin; Z88.5 Allergy status to narcotic agent; Z88.2 Allergy status to sulfonamides; Z88.8 Allergy status to other drugs, medicaments and biological substances; Z96.653 Presence of artificial knee joint, bilateral; Z95.0 Presence of cardiac pacemaker; Z85.828 Personal history of other malignant neoplasm of skin
CPT/HCPCS: 36415; 71045; 82040; 82247; 82310; 82374; 82435; 82565; 82947; 84075; 84132; 84155; 84295; 84450; 84460; 84520; 85025; 85610; 86140; 87040; 87070; 87073; 87077; 87186; 87205; 90715; 93005; 96365; 96366; 96375; 99284; J1100; J1170; J1885; J1956; J2001; J2405; J2704; J2795; J3010; J3490; J7030; Q9967

== ENCOUNTER → 2017-11-13 | Outpatient (CLI) | payer MEDICARE, OTHER ==
[2017-10-27 11:05] VITALS: BMI 38.5
[~2017-11-13] MED LIST changes: +FURO-45 PO; +LEVO500T83 PO; +METR-160 PO
== END ==
LOC: LAB 09:57
PROVIDERS: ATTEND Ophthalmology
DX: H11.823 Conjunctivochalasis, bilateral (principal); Z96.1 Presence of intraocular lens
CPT/HCPCS: 99001

== ENCOUNTER 2017-12-25 12:45 | Emergency (ER) | payer MEDICARE, OTHER ==
[2017-10-27 11:05] VITALS: Wt 94.1 kg
[~2017-12-25 12:45] MED LIST changes: +LACT1CAP6 PO
--- NOTE | 2017-12-25 12:47 | ER Report ---
History and Physical Time Seen By MD: 13:15 HPI/ROS This is a 77-year-old female with multiple medical problems and cardiac risk factors who presents to the emergency department with 2 weeks of intermittent chest pain. She states that the episodes of chest pain happen more so when she is bending forward such as cleaning out her cat box. It is both sharp and pressure in nature. It sometimes radiates to her neck. The episodes last approximately 5 minutes. She does not have these episodes every day. She went to see her primary physician yesterday who told her that if the symptoms happen again she should come to the emergency department. The symptoms today started approximately 1-1/2 hours prior to arrival. She did not take aspirin, because she is on Eliquis. She currently has no symptoms. She otherwise feels well in between the episodes. She has never had any cardiac stress testing. Remainder of the 14 system rev: Yes Allergies: Coded Allergies: amoxicillin (Verified Allergy, Intermediate, HIVES, 10/22/17) clavulanic acid (Verified Allergy, Intermediate, HIVES, 10/22/17) tetracycline (Verified Allergy, Intermediate, HIVES, 10/22/17) oxycodone (Verified Allergy, Unknown, Hearing loss, 10/22/17) sulfamethoxazole (Unverified Adverse Reaction, Mild, vertigo, 10/22/17) trimethoprim (Unverified Adverse Reaction, Mild, vertigo, 10/22/17) Home Meds Active Scripts Eletriptan Hbr (RELPAX) 20 Mg Tablet, 20 MG PO PRN for 90 Days, #9 TAB 1 Refill Prov:ROSELYN RODRIGUES MD 12/24/17 Valsartan/Hydrochlorothiazide (VALSARTAN-HCTZ 80-12.5 MG TAB) 1 Each Tablet, 1 TAB PO QDAY for 90 Days, #90 TAB 4 Refills Prov:ROSELYN RODRIGUES MD 10/18/17 Diclofenac Sodium 1% Gel (VOLTAREN 1% GEL) 100 Gm Gel..gram., 1 SARAI TP PRN PRN for PAIN, #1 TUBE 6 Refills Prov:ROSELYN RODRIGUES MD 08/31/17 Reported Medications Lactobacillus Combination No.4 (PROBIOTIC) 1 Each Capsule, 1 CAP PO DAILY, CAPSULE 12/24/17 Furosemide (FUROSEMIDE) 20 Mg Tablet, 1 TAB PO QDAY, TAB 10/26/17 Melatonin (MELATONIN) 10 Mg Tablet, 1 TAB PO PRN 05/17/17 Cholecalciferol (Vitamin D3) (VITAMIN D3) 1,000 Unit Capsule, 1 CAP PO DAILY, CAPSULE 05/17/17 Cyanocobalamin (Vitamin B-12) (VITAMIN B-12) 1,000 Mcg Tablet, 1 TAB PO DAILY 05/17/17 Multivitamin (DAILY MULTIPLE VITAMIN) Unknown Strength Tablet, 1 TAB PO DAILY 01/15/17 Psyllium Husk (FIBER) Unknown Strength Capsule, 1 CAP PO QDAY, CAPSULE 01/15/17 Apixaban (ELIQUIS) 5 Mg Tablet, 1 TAB PO BID 08/06/16 Discontinued Scripts Hydrocodone Bit/Acetaminophen (HYDROCODON-ACETAMINOPHEN 5-325) 1 Each Tablet, 1- 2 TAB PO Q6H PRN for PAIN, #20 TAB Prov:ARIADNA BAH DO 11/02/17 Metronidazole (METRONIDAZOLE) 500 Mg Tablet, 500 MG PO TID, #15 TAB Prov:ARIADNA BAH DO 11/02/17 Levofloxacin 500 Mg Tab (LEVOFLOXACIN 500 MG TAB) 500 Mg Tablet, 500 MG PO QDAY, #5 TAB Prov:ARIADNA BAH DO 11/02/17 Reviewed Nurses Notes: Yes Old Medical Records Reviewed: Yes Hx Smoking: No Smoking Status: Never Smoker Hx Substance Use Disorder: No Hx Alcohol Use: Yes (3-5 TIMES WEEK) Constitutional Vital Sign - Last 24 Hours 12/25/17 12/25/17 12/25/17 12/25/17 12:45 12:47 12:52 13:00 Temp 97.5 Pulse ??? 55 61 Resp 18 12 B/P (MAP) 162/75 (104) Pulse Ox 94 95 O2 Delivery Room Air 12/25/17 12/25/17 12/25/17 12/25/17 13:15 13:30 13:45 13:56 Pulse 42 62 ??? Resp 26 19 B/P (MAP) 119/89 (99) 117/45 (69) Pulse Ox 95 12/25/17 12/25/17 12/25/17 12/25/17 14:00 14:05 14:20 14:30 Pulse 60 60 59 Resp 7 11 12 B/P (MAP) 115/71 (86) 107/65 (79) Pulse Ox 94 94 94 12/25/17 12/25/17 12/25/17 12/25/17 14:35 14:50 15:00 15:05 Pulse 60 60 ??? Resp 8 13 B/P (MAP) 138/70 (92) Pulse Ox 93 93 12/25/17 12/25/17 12/25/17 12/25/17 15:20 15:30 15:35 15:50 Pulse 63 61 61 Resp 10 18 B/P (MAP) 143/92 (109) Pulse Ox 94 94 94 12/25/17 16:00 B/P (MAP) 150/83 (105) Physical Exam General Appearance: The patient is alert, has no immediate need for airway protection and no current signs of toxicity. Eyes: Pupils equal and round no injection. Respiratory: Chest is non tender, lungs are clear to auscultation. Cardiac: irregular rate and rhythm Gastrointestinal: Abdomen is soft and non tender, no masses, bowel sounds normal. Neck: Neck is supple and non tender. Extremities have full range of motion and are non tender. Skin: No rashes or lesions. DIFFERENTIAL DIAGNOSIS: After history and physical exam differential diagnosis was considered for chest pain including but not limited to myocardial ischemia, pericarditis pulmonary embolus, chest wall pain, pleural inflammation and pulmonary infectious causes. Medical Decision Making Data Points Result Diagram: 12/25/17 1300 12/25/17 1300 Laboratory Hematology Test 12/25/17 13:00 12/25/17 15:59 Red Blood Count 4.97 M/uL (4.17-5.56) Mean Corpuscular Volume 92.8 fL (80.0-96.0) Mean Corpuscular Hemoglobin 32.2 pg (26.0-33.0) Mean Corpuscular Hemoglobin Concent 34.7 g/dL (32.0-36.0) Red Cell Distribution Width 14.0 % (11.5-14.5) Mean Platelet Volume 8.0 fL (7.2-11.1) Neutrophils (%) (Auto) 58.6 % (39.4-72.5) Lymphocytes (%) (Auto) 32.4 % (17.6-49.6) Monocytes (%) (Auto) 7.0 % (4.1-12.4) Eosinophils (%) (Auto) 1.2 % (0.4-6.7) Basophils (%) (Auto) 0.8 % (0.3-1.4) Nucleated RBC Relative Count (auto) 0.1 /100WBC Neutrophils # (Auto) 3.8 K/uL (2.0-7.4) Lymphocytes # (Auto) 2.1 K/uL (1.3-3.6) Monocytes # (Auto) 0.5 K/uL (0.3-1.0) Eosinophils # (Auto) 0.1 K/uL (0.0-0.5) Basophils # (Auto) 0.1 K/uL (0.0-0.1) Nucleated RBC Absolute Count (auto) 0.00 K/uL Sodium Level 136 mmol/L (137-145) Potassium Level 3.8 mmol/L (3.5-5.0) Chloride Level 102 mmol/L (98-107) Carbon Dioxide Level 21 mmol/L (22-31) Blood Urea Nitrogen 42 mg/dl (7-18) Creatinine 1.10 mg/dl (0.52-1.04) Glomerular Filtration Rate Calc 48.3 Random Glucose 116 mg/dl (75-110) Calcium Level 9.8 mg/dl (8.4-10.2) Total Bilirubin 1.1 mg/dl (0.2-1.3) Aspartate Amino Transf (AST/SGOT) 29 U/L (0-35) Alanine Aminotransferase (ALT/SGPT) 31 U/L (0-56) Alkaline Phosphatase 65 U/L (0-126) Total Protein 7.2 g/dl (6.3-8.2) Albumin 4.4 g/dl (3.5-5.0) Troponin I 0.023 ng/ml Chemistry Test 12/25/17 13:00 12/25/17 15:59 White Blood Count 6.5 k/uL (4.5-11.0) Red Blood Count 4.97 M/uL (4.17-5.56) Hemoglobin 16.0 g/dL (12.0-16.0) Hematocrit 46.1 % (34.0-47.0) Mean Corpuscular Volume 92.8 fL (80.0-96.0) Mean Corpuscular Hemoglobin 32.2 pg (26.0-33.0) Mean Corpuscular Hemoglobin Concent 34.7 g/dL (32.0-36.0) Red Cell Distribution Width 14.0 % (11.5-14.5) Platelet Count 304 K/uL (150-450) Mean Platelet Volume 8.0 fL (7.2-11.1) Neutrophils (%) (Auto) 58.6 % (39.4-72.5) Lymphocytes (%) (Auto) 32.4 % (17.6-49.6) Monocytes (%) (Auto) 7.0 % (4.1-12.4) Eosinophils (%) (Auto) 1.2 % (0.4-6.7) Basophils (%) (Auto) 0.8 % (0.3-1.4) Nucleated RBC Relative Count (auto) 0.1 /100WBC Neutrophils # (Auto) 3.8 K/uL (2.0-7.4) Lymphocytes # (Auto) 2.1 K/uL (1.3-3.6) Monocytes # (Auto) 0.5 K/uL (0.3-1.0) Eosinophils # (Auto) 0.1 K/uL (0.0-0.5) Basophils # (Auto) 0.1 K/uL (0.0-0.1) Nucleated RBC Absolute Count (auto) 0.00 K/uL Glomerular Filtration Rate Calc 48.3 Calcium Level 9.8 mg/dl (8.4-10.2) Total Bilirubin 1.1 mg/dl (0.2-1.3) Aspartate Amino Transf (AST/SGOT) 29 U/L (0-35) Alanine Aminotransferase (ALT/SGPT) 31 U/L (0-56) Alkaline Phosphatase 65 U/L (0-126) Total Protein 7.2 g/dl (6.3-8.2) Albumin 4.4 g/dl (3.5-5.0) Troponin I 0.023 ng/ml EKG/Imaging EKG Interpretation 12 lead EKG: Rhythm: irregular rhythm [place]: left QRS: Wide due to left bundle branch block ST segments: Consistent with left bundle branch block No changes from previous EKGs. Imaging X-ray: cxr was obtained. I viewed the images myself on the PACS system. My interpretation of the images is: No infiltrates, right his pacemaker. The radiologist interpretation had no clinically significant variation from this in terpretation. ED Course/Re-evaluation ED Course This is a 77-year-old female with multiple medical problems. She has had intermittent chest pain with episodes lasting 5 minutes for the past 2 weeks. She gets the episodes once a day, but does not get them every day. Her EKG is at its baseline. She had 2 troponins drawn 3 hours apart in the emergency department, and both are negative. Her risk factors for coronary artery disease and the fact that this could represent unstable angina, she has been scheduled for a nuclear stress test tomorrow at 8 AM. Decision to Disposition Date: Dec 25, 2017 Decision to Disposition Time: 16:56 Depart Departure Latest Vital Signs Vital Signs Date Time Temp Pulse Resp B/P (MAP) Pulse Ox O2 Delivery O2 Flow Rate FiO2 12/25/17 16:00 150/83 (105) 12/25/17 15:50 61 18 94 12/25/17 12:47 97.5 Room Air Impression: Primary Impression: Chest pain in adult Condition: Improved Disposition: HOME OR SELF-CARE Referrals: ROSELYN RODRIGUES MD (PCP) Patient Instructions: Chest Pain (ED) Additional Instructions: ,Come To the emergency department tomorrow at 8 AM. No caffeine tomorrow morning. Drink plenty of water. He will be escorted for your stress test. MARY SINGH MD Dec 25, 2017 12:47
[2017-12-25 13:36] LABS: PLATELET COUNT, AUTOMATED 304 K/uL (150-450)
--- NOTE | 2017-12-25 14:46 | RADIOLOGY IMAGING REPORT ---
FACILITY: [facility] - [place] PATIENT NAME: Miriam Gardiner : 1940 MR: [id number] V: [id number] EXAM DATE: ORDERING PHYSICIAN: MARY SINGH TECHNOLOGIST: [place] [facility] [place]iam Gard[place] : 1940 Visit/Account:[id number] Date of Sevice: 12/25/2017 CHEST PA AND LAT INDICATION: chest pain COMPARISON: 10/31/2017 FINDINGS: Cardio silhouette remains mildly enlarged. Wireless pacemaker is noted over the left heart border. There is no focal infiltrate or lobar consolidation. There is no pneumothorax or pleural effusion. IMPRESSION: 1. No acute cardiopulmonary process. Report Dictated By: Daron Damian at 12/25/2017 2:37 PM Report E-Signed By: Daron Damian at 12/25/2017 2:42 PM WSN:[id number]
[2017-12-25 17:00] VITALS: BP 143/100
== END 2017-12-25 17:15 | disposition home or self-care (01) ==
LOC: ER 12:59
DX: R07.89 Other chest pain (principal)
CPT/HCPCS: 36415; 71046; 82040; 82247; 82310; 82374; 82435; 82565; 82947; 84075; 84132; 84155; 84295; 84450; 84460; 84484; 84520; 85025; 93005; 99284

== ENCOUNTER → 2017-12-26 | Outpatient (CLI) | payer MEDICARE, OTHER ==
[2017-10-27 11:05] VITALS: BMI 38.5
[~2017-12-26] MED LIST changes: +REGADENOSON 0.4 MG/5 ML SYR ONE
--- NOTE | 2017-12-26 16:06 | RADIOLOGY IMAGING REPORT ---
FACILITY: [facility] - [place] PATIENT NAME: Miriam Gardiner : 1940 MR: [id number] V: [id number] EXAM DATE: [id number] ORDERING PHYSICIAN: ROSELYN RODRIGUES TECHNOLOGIST: Location: Patient: Miriam Gardiner : 1940 Visit/Account:[id number] Date of Sevice: 12/26/2017 EXAMINATION: Single isotope SPECT imaging with regadenoson infusion and gated SPECT imaging. DATE OF EXAMINATION: 12/26/17. DATE OF INTERPRETATION: 12/26/17. REQUESTING PHYSICIAN: ROSELYN RODRIGUES. INDICATION: The patient is a 77-year-old F evaluated for chest pain. PROCEDURE: After informed consent the patient received an intravenous injection of 12.1 mCi of Tc-99 m sestamibi followed at an appropriate time interval by rest imaging. The patient then subsequently received an intravenous infusion of 0.4 mg of regadenoson per protocol without complication. Resting heart rate was 65 bpm with a peak heart rate of 88 bpm. Blood pressure at rest was 146 / 84 and fol lowing infusion was 146 / 84. Baseline EKG demonstrates sinus rhythm with RBBB. There were no EKG c hanges of ischemia following infusion. Symptoms were nonspecific. The patient then received an intr avenous injection of 29.0 mCi of Tc-99m sestamibi followed by stress imaging. RAW DATA: Examination of the summed raw data revealed a poor quality study. MYOCARDIAL PERFUSION: The tomographic images demonstrate normal perfusion at rest. Stress images are limited by suggestive of a small defect that is mild in severity consistent with ischemia. TID is 1. 29. GATED IMAGES: Ejection fraction unable to be assessed due to technical limitations. IMPRESSION: 1. Nondiagnostic Lexiscan stress ECG 2. Abnormal myocardial perfusion scan, with evidence of a small area of distal LAD ischemia. Images are limited. 3. Based on the results of this exam, the patient appears to be at intermediate risk for future cardi ovascular events. Report Dictated By: Zurdo Bean at 12/26/2017 3:56 PM Report E-Signed By: Zurdo Bean at 12/26/2017 4:01 PM WSN:[id number]
== END ==
LOC: NUC 06:57
PROVIDERS: ATTEND Family Medicine
DX: I50.9 Heart failure, unspecified (principal); R07.89 Other chest pain; R61 Generalized hyperhidrosis
CPT/HCPCS: 93017; J2785; 78452; A9500